=== PATIENT | female | born 1980 | race American Indian/Alaskan Native ===

== ENCOUNTER 2021-02-17 00:21 | Emergency (ER) | payer MEDICAID ==
--- NOTE | 2021-02-17 01:44 | EDM.PDOC ---
ED HPI GENERAL MEDICAL PROBLEM - General Chief Complaint: Abdominal Pain Stated Complaint: RIGHT SIDE ABD PAIN Time Seen by Provider: 02/17/21 01:41 Source of Information: Reports: Patient History Limitations: Reports: No Limitations - History of Present Illness INITIAL COMMENTS - FREE TEXT/NARRATIVE: pt arrived with rt lower abdomanalpain. After the pain started she developed a large loose stool. Onset: Today, Sudden, Other ( this woke her from a sound sleep. ) Duration: Hour(s): Location: Reports: Abdomen Associated Symptoms: Reports: Other (pt did have a large loose stool. ) Right Lower Abdomen Pain Score (Numeric/FACES): 10 - Related Data Allergies Allergy/AdvReac Type Severity Reaction Status Date / Time sumatriptan [From Imitrex] Allergy Nausea Verified 02/17/21 00:45 Home Meds: Home Meds . [Unable to Verify Home Med List] 02/17/21 [History] Past Medical History Cardiovascular History: Reports: Hypertension Gastrointestinal History: Reports: Irritable Bowel Syndrome [employer] History: Reports: Neurological History: Reports: Migraines - Infectious Disease History Infectious Disease History: Reports: Chicken Pox Social & Family History - Tobacco Use Tobacco Use Status *Q: Never Tobacco User - Caffeine Use Caffeine Use: Reports: Coffee - Recreational Drug Use Recreational Drug Use: No ED ROS GENERAL - Review of Systems Review Of Systems: See Below Constitutional: Reports: Decreased Appetite HEENT: Reports: No Symptoms Respiratory: Reports: No Symptoms Cardiovascular: Reports: No Symptoms Endocrine: Reports: No Symptoms GI/Abdominal: Reports: Abdominal Pain, Other ( rt lower abdoman. ) : Reports: No Symptoms Musculoskeletal: Reports: No Symptoms Skin: Reports: No Symptoms ED EXAM, GI/ABD - Physical Exam Exam: See Below Text/Narrative:: pt arrived with a history of lower abdomanal pain which woke her up from a sound sleep. She rated the pain at a 10. She has not vomited but she has had a large loose stool. She is still rating her pain at a 8. 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 ) Ears: Normal TMs Nose: Normal Inspection Throat/Mouth: Normal Inspection Head: Atraumatic Neck: Normal Inspection Respiratory/Chest: No Respiratory Distress Cardiovascular: Regular Rate, Rhythm GI/Abdominal Exam: Other (pt has tenderness in the very low rt abdoman. The rest of the abdoman is soft and not tender. ) (Female) Exam: Deferred Back Exam: Normal Inspection Extremities: Normal Inspection Neurological: Alert, Oriented Psychiatric: Anxious Skin Exam: Other (pt has a tender red area on the inner aspect of the rt bereast which looks like a mastitis. ) Course - Vital Signs Last Recorded V/S: Last Vital Signs Temp 36.3 C 02/17/21 00:51 Pulse 95 02/17/21 00:51 Resp 16 02/17/21 00:51 BP 151/75 H 02/17/21 00:51 Pulse Ox 96 02/17/21 00:51 - Orders/Labs/Meds Labs: Laboratory Tests 02/17/21 02/17/21 02/17/21 Range/Units 01:21 01:35 01:35 WBC 12.0 H (4.5-11.0) K/uL RBC 4.76 (3.30-5.50) M/uL Hgb 13.9 (12.0-15.0) g/dL Hct 42.1 (36.0-48.0) % MCV 88 (80-98) fL MCH 29 (27-31) pg MCHC 33 (32-36) % Plt Count 287 (150-400) K/uL Neut % (Auto) 82.6 H (36-66) % Lymph % (Auto) 8.5 L (24-44) % [place] % (Auto) 6.5 H (2-6) % Eos % (Auto) 2.3 (2-4) % Baso % (Auto) 0.1 (0-1) % Sodium 142 (140-148) mmol/L Potassium 3.6 (3.6-5.2) mmol/L Chloride 104 (100-108) mmol/L Carbon Dioxide 25 (21-32) mmol/L Anion Gap 13.2 (5.0-14.0) mmol/L BUN 17 (7-18) mg/dL Creatinine 0.8 (0.6-1.0) mg/dL Est Cr Clr Drug Dosing 78.10 mL/min Estimated GFR (MDRD) > 60 (>60) Glucose 98 (74-106) mg/dL Calcium 8.8 (8.5-10.1) mg/dL Total Bilirubin 0.5 (0.2-1.0) mg/dL AST 10 L (15-37) U/L ALT 26 (12-78) U/L Alkaline Phosphatase 66 (46-116) U/L C-Reactive Protein (0.0-0.3) mg/dL Total Protein 7.2 (6.4-8.2) g/dL Albumin 4.0 (3.4-5.0) g/dL Globulin 3.2 (2.3-3.5) g/dL Albumin/Globulin Ratio 1.3 (1.2-2.2) Urine Color Yellow (YELLOW) Urine Appearance Clear (CLEAR) Urine pH 5.5 (5.0-8.0) Ur Specific Clifford >= 1.030 (1.008-1.030) Urine Protein Negative (NEGATIVE) mg/dL Urine Glucose (UA) Negative (NEGATIVE) mg/dL Urine Ketones 80 H (NEGATIVE) mg/dL Urine Occult Blood Negative (NEGATIVE) Urine Nitrite Negative (NEGATIVE) Urine Bilirubin Small H (NEGATIVE) Urine Urobilinogen 0.2 (0.2-1.0) EU/dL Ur Leukocyte Esterase Negative (NEGATIVE) Urine RBC 0-5 (0-5) Urine WBC 0-5 (0-5) Ur Epithelial Cells Few Amorphous Sediment Occasional Urine Bacteria Few Urine Mucus Numerous 02/17/21 Range/Units 01:35 WBC (4.5-11.0) K/uL RBC (3.30-5.50) M/uL Hgb (12.0-15.0) g/dL Hct (36.0-48.0) % MCV (80-98) fL MCH (27-31) pg MCHC (32-36) % Plt Count (150-400) K/uL Neut % (Auto) (36-66) % Lymph % (Auto) (24-44) % [place] % (Auto) (2-6) % Eos % (Auto) (2-4) % Baso % (Auto) (0-1) % Sodium (140-148) mmol/L Potassium (3.6-5.2) mmol/L Chloride (100-108) mmol/L Carbon Dioxide (21-32) mmol/L Anion Gap (5.0-14.0) mmol/L BUN (7-18) mg/dL Creatinine (0.6-1.0) mg/dL Est Cr Clr Drug Dosing mL/min Estimated GFR (MDRD) (>60) Glucose (74-106) mg/dL Calcium (8.5-10.1) mg/dL Total Bilirubin (0.2-1.0) mg/dL AST (15-37) U/L ALT (12-78) U/L Alkaline Phosphatase (46-116) U/L C-Reactive Protein 4.84 H (0.0-0.3) mg/dL Total Protein (6.4-8.2) g/dL Albumin (3.4-5.0) g/dL Globulin (2.3-3.5) g/dL Albumin/Globulin Ratio (1.2-2.2) Urine Color (YELLOW) Urine Appearance (CLEAR) Urine pH (5.0-8.0) Ur Specific Clifford (1.008-1.030) Urine Protein (NEGATIVE) mg/dL Urine Glucose (UA) (NEGATIVE) mg/dL Urine Ketones (NEGATIVE) mg/dL Urine Occult Blood (NEGATIVE) Urine Nitrite (NEGATIVE) Urine Bilirubin (NEGATIVE) Urine Urobilinogen (0.2-1.0) EU/dL Ur Leukocyte Esterase (NEGATIVE) Urine RBC (0-5) Urine WBC (0-5) Ur Epithelial Cells Amorphous Sediment Urine Bacteria Urine Mucus Meds: Medications Discontinued Medications Generic Name Dose Route Start Last Admin Trade Name Freq PRN Reason Stop Dose Admin Sodium Chloride 1,000 mls @ 999 mls/hr 02/17/21 02:15 Normal Saline IV ASDIRECTED [facility] - Re-Assessments/Exams Free Text/Narrative Re-Assessment/Exam: 02/19/21 18:12 Pt had a elevated crp and wbc. The rest of her chems looked good. Her pain did gradually improve. She had ketones in the urine and her specfic gravity was 1.030. Fluids were ordered but she refused . Because of the acute onset of the pain and the tenderness a Cat scan of the abdoman was ordered but she refused. She was advised that she needed to take responsibility in seeking medical help if she has recurrent pain. Departure - Departure Time of Disposition: 02:31 Disposition: Home, Self-Care 01 Condition: Fair Clinical Impression: Mastitis, Abdominal pain, Dehydration - Discharge Information Instructions: Abdominal Pain, Adult, Mastitis, and Mastitis, Dehydration, Adult Referrals: PCP,None [Primary Care Provider] - Forms: ED Department Discharge Care Plan Goals: keflex 500mg tid, push fluids. pt was offered iv fluid and a cat scan and she r efused. She did sign a paper indicating that she was taking responsibility for the outcome. Pt has mastitis and is will to take antibiotic for that. 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 Sepsis Event Note (ED) - Evaluation Sepsis Screening Result: No Definite Risk
[2021-02-17] MEDS ORDERED: Sodium Chloride 0.9% 1,000 ML IV SCH (02:15)
== END 2021-02-17 02:41 | disposition home or self-care (01) ==
LOC: JP.ED 00:21
DX: R10.9 Unspecified abdominal pain (principal); N61.0 Mastitis without abscess; E86.0 Dehydration; I10 Essential (primary) hypertension; Z88.8 Allergy status to other drugs, medicaments and biological substances
CPT/HCPCS: 36415; 80053; 81001; 85025; 86140; 99284

== ENCOUNTER 2022-06-23 20:39 | Emergency (ER) | payer SELFPAY ==
[2022-06-23 21:42] LABS: ESTIMATED GFR 112 mL/min (>60)
== END 2022-06-23 23:26 | disposition home or self-care (01) ==
LOC: JP.ED 20:39
DX: O20.9 Hemorrhage in early pregnancy, unspecified (principal); O09.521 Supervision of elderly multigravida, first trimester; Z3A.01 Less than 8 weeks gestation of pregnancy
CPT/HCPCS: 36415; 76801; 80053; 81001; 83615; 84702; 85027; 99283; 99284